=== PATIENT | female | born 1970 | race African-American/Black ===

== ENCOUNTER 2023-05-04 06:28 | Day surgery (SDC) | payer SELFPAY ==
[2023-04-19 15:44] VITALS: BMI 25.8
[2023-05-04] MEDS ORDERED: PROMETHAZINE HCL 25 MG/1 ML VIAL IVPB PRN (07:17)
[2023-05-04] MEDS ORDERED: oxyCODONE HCL 5 MG TABLET PO PRN (07:17)
[2023-05-04] MEDS ORDERED: ONDANSETRON 4 MG/2 ML VIAL IVPUSH PRN (07:17)
[2023-05-04] MEDS ORDERED: ACETAMINOPHEN INJECTION 100 ML IVPB ONE (07:20)
[2023-05-04] MEDS ORDERED: LACTATED RINGERS SOLUTION 1,000 ML IV SCH (07:30)
[2023-05-04] MEDS ORDERED: SEVOFLURANE 250 ML BTL ONE (07:31)
[2023-05-04] MEDS ORDERED: ROCURONIUM BROMIDE 50 MG/5 ML SYRINGE ONE (07:33)
[2023-05-04] MEDS ORDERED: SUCCINYLCHOLINE CHLORIDE 200 MG/10 ML SYRINGE ONE (07:33)
[2023-05-04] MEDS ORDERED: PROPOFOL 40 ML ONE (07:33)
[2023-05-04] MEDS ORDERED: LIDOCAINE HCL 1%, 10 MG/ML (20ML VIAL) ONE (07:35)
[2023-05-04] MEDS ORDERED: EPINEPHrine/PF 1 MG/1 ML (1:1,000) AMPULE ONE (07:35)
[2023-05-04] MEDS ORDERED: ceFAZolin SODIUM 1 GM VIAL ONE (07:35)
[2023-05-04] MEDS ORDERED: BACITRACIN ZINC 15 GM TUBE TOPICAL OINTMENT ONE ×2 (07:35→12:46)
[2023-05-04] MEDS ORDERED: MIDAZOLAM HCL 2 MG/2 ML SINGLE DOSE VIAL ONE (07:35)
[2023-05-04] MEDS ORDERED: ONDANSETRON 4 MG/2 ML VIAL ONE (07:36)
[2023-05-04] MEDS ORDERED: DEXAMETHASONE SOD PHOSPHATE 4 MG/1 ML VIAL ONE (07:38)
[2023-05-04] MEDS ORDERED: LIDOCAINE HCL/PF 2% SDV 5ML VIAL ONE (07:41)
[2023-05-04 15:14] VITALS: BP 127/65; PULSE 83; RESP 17; TEMP 97.2
== END 2023-05-04 15:05 | disposition home or self-care (01) ==
LOC: FASU 06:28
PROVIDERS: ATTEND Surgery
PROC: 0J073ZZ Alteration of Back Subcutaneous Tissue and Fascia, Percutaneous Approach (ICD-10-PCS; 2023-05-04)
PROC: 0J063ZZ Alteration of Chest Subcutaneous Tissue and Fascia, Percutaneous Approach (ICD-10-PCS; 2023-05-04)
PROC: 0J083ZZ Alteration of Abdomen Subcutaneous Tissue and Fascia, Percutaneous Approach (ICD-10-PCS; principal; 2023-05-04 11:26)
DX: E65 Localized adiposity (principal)
CPT/HCPCS: 94760